=== PATIENT | male | born 1965 | race Caucasian/White ===

== ENCOUNTER 2021-12-13 13:54 | Emergency (ER) | payer BC, SELFPAY ==
[2021-12-13] VITALS (8 sets, daily range): BP systolic 130–139; BP diastolic 77–92; PULSE 74–99; RESP 15–25; TEMP 37.3; O2SAT 93–97; BMI 27.3
[2021-12-13 15:22] LABS: Add Manual Diff / Slide Review NO; Basophils Absolute Auto 100 /uL (0-100); Basophils Percent Auto 0.6 % (0-2); Eosinophils Absolute Auto 100 /uL (0-450); Eosinophils Percent Auto 0.9 % (2-4); Hematocrit 47.9 % (41-53); Hemoglobin 16.1 g/dL (13.5-17.5); Lymphocytes Absolute Auto 900 /uL (1100-4500); Lymphocytes Percent Auto 7.3 % (25-40); Mean Corpuscular HGB Conc 33.7 % (30-36); Mean Corpuscular Hemoglobin 30.2 PG (26-34); Mean Corpuscular Volume 89.6 fL (80-100); Monocytes Absolute Auto 900 /uL (0-900); Monocytes Percent Auto 7.3 % (3-14); Neutrophils Absolute Auto 10600 /uL (1500-7000); Neutrophils Percent Auto 83.9 % (50-75); Platelet Count 324 X10^3/uL (150-400); Red Blood Cell Count 5.35 X10^6/uL (4.5-5.9); White Blood Cell Count 12.6 X10^3/uL (4.5-11.0)
[2021-12-13 15:23] LABS: Alanine Aminotransferase 37 IU/L (<50); Albumin 4.5 g/dL (3.5-5.0); Albumin Globulin Ratio 1.3 (1.0-2.8); Alkaline Phosphatase 63 U/L (38-126); Aspartate Aminotransferase 37 IU/L (17-59); BUN Creatinine Ratio 13.7 (6-22); Blood Urea Nitrogen 13 mg/dL (9-20); Calcium 9.5 mg/dL (8.4-10.2); Carbon Dioxide 27 mmol/L (22-32); Chloride 105 mmol/L (98-107); Estimated Glomerular Filt Rate > 60.0 mL/min (>60); Globulin 3.6 g/dL (1.7-4.1); Glucose 94 mg/dL (70-100); HEMOLYSIS < 15 (0-50); Lipase 105 U/L (23-300); Potassium 4.2 mmol/L (3.4-5.1); Sodium 138 mmol/L (137-145); Total Protein 8.1 g/dL (6.3-8.2)
--- NOTE | 2021-12-13 15:46 | ED_ITS ---
HPI - Abdominal Pain <ARNALDO Doty - Last Filed: 12/13/21 17:30> General Chief Complaint: Abdominal Pain Stated Complaint: Severe abd pain x 2 weeks Time Seen by Provider: 12/13/21 15:46 Source: patient Mode of arrival: Ambulatory History of Present Illness HPI narrative: 56-year-old male without any significant medical history presents to the emergency department complaining of left lower quadrant pain for the last 2 weeks but it became worse last night. Patient states that 5 days ago he had a sharp episode of the same pain which he describes as 10/10 pain. Patient states that he has a low-grade fever today, 99.8, he endorses that his primary care provider Carly Thayer from [place] sent him to the emergency department today for evaluation of this. Patient denies any vomiting or stool changes but does endorse nausea. Patient denies having an appetite today but otherwise has been tolerating p.o.. Patient states that he has had a daily bowel movement in these have been normal for him. Patient denies any blood in his stool, denies any urinary retention, dysuria, urinary urgency, or flank pain. Patient denies any shortness of breath, chest pain, abdominal pain anywhere else, or pelvic pain. Patient has a history of HASEEB, hyperlipidemia, and polycythemia. Related Data Home Medications Medication Instructions Recorded Confirmed ACETAMINOPHEN 1,000 mg PO TIDP #30 cap 04/08/12 Previous Rx's Medication Instructions Recorded testosterone enanthate 200 mg/mL 0 IM QWEEK #10 ml 11/18/16 intramuscular oil sildenafil (pulm.hypertension) 20 0 PO HS #60 tab 01/23/17 mg tablet ciprofloxacin HCl 500 mg tablet 500 mg PO BID 10 Days #20 tab 12/13/21 (Cipro) metronidazole 500 mg tablet 500 mg PO TID 10 Days #30 tab 12/13/21 Allergies Allergy/AdvReac Type Severity Reaction Status Date / Time No Known Drug Allergies Allergy Verified 12/13/21 14:35 Review of Systems <ARNALDO Doty - Last Filed: 12/13/21 17:30> Review of Systems Narrative: General: Endorses low-grade fever today, denies chills, malaise, sweats, fatigue Head/Neck: denies headache, neck pain, dizziness Eyes: denies visual changes, eye pain Cardio: denies chest pain, palpitations, edema Respiratory: denies dyspnea, cough, orthopnea GI: Endorses right lower quadrant pain now with nausea , denies vomiting, or diarrhea : denies dysuria, hematuria, urinary retention, frequency or incontinence MSK: denies joint pain, muscle weakness Skin: denies rash, itching, skin lesions or other Neuro: denies numbness, tingling Patient History <ARNALDO Doty - Last Filed: 12/13/21 17:30> Medical History Excessive daytime sleepiness (~2011) Insomnia, persistent (~2011) Obstructive sleep apnea of adult (~2011) Snoring (~1992) Family History Father Heart disease Hypertension Social History Smoking Status: Unknown if ever smoked Smoking Status: Unknown if ever smoked alcohol intake frequency: holidays/special occasions only Substance Use Type: does not use Exam <ARNALDO Doty - Last Filed: 12/13/21 17:30> Narrative Exam Narrative: Independently reviewed vitals signs and nursing notes. General: Cooperative, comfortable, in no acute distress, well developed and well groomed Head/Neck: Normal visual inspection and supple, atraumatic, no JVD or lymphadenopathy. Normal facial exam Eyes: Pupils equal round and reactive, EOMI, conjunctiva normal, no scleral icterus or injections Nose: External nose normal, nares patent, no rhinorrhea, without purulent drainage Mouth/Throat: uvula midline, moist mucus membranes Cardio: Regular rate and rhythm, no peripheral edema, warm extremities Respiratory: Normal respiratory effort, able to speak in complete sentences without audible wheezing, stridor, or rales. No retractions. GI: Abdomen soft, tender to palpation over the left lower lateral quadrant, no tenderness to other quadrants, nondistended, no masses or exquisite tenderness with exam, no flank tenderness MSK: Moves all extremities, neurovascularly intact Skin: Normal capillary refill, no rash Neuro: Normal speech and cognition, normal gait, A&O x3, tone normal, moves all extremities Psych: Mental status is grossly normal, speech is clear, congruent mood, normal affect Initial Vital Signs Initial Vital Signs: Vital Signs Temperature 99.1 F 12/13/21 14:36 Pulse Rate 99 H 12/13/21 14:36 Respiratory Rate 15 12/13/21 14:36 Blood Pressure 136/84 12/13/21 14:36 Pulse Oximetry 96 12/13/21 14:36 <Ana Perea DO - Last Filed: 12/18/21 07:36> Initial Vital Signs Initial Vital Signs: Vital Signs Temperature 99.1 F 12/13/21 14:36 Pulse Rate 99 H 12/13/21 14:36 Respiratory Rate 15 12/13/21 14:36 Blood Pressure 136/84 12/13/21 14:36 Pulse Oximetry 96 12/13/21 14:36 Course <ARNALDO Doty - Last Filed: 12/13/21 17:30> Orders Ordered: Discontinued Medications Ciprofloxacin (Ciprofloxacin 250 Mg Tablet) 500 mg PO NOW ONE Stop: 12/13/21 17:08 Last Admin: 12/13/21 17:12 Dose: 500 mg Documented by: RAFIQ Sodium Chloride (Normal Saline 0.9%) 1,000 mls @ 1,000 mls/hr IV BOLUS ONE Stop: 12/13/21 16:52 Last Infusion: 12/13/21 17:08 Dose: 0 mls/hr Documented by: Admin: 12/13/21 16:08 Dose: 1,000 mls/hr Documented by: RAFIQ Ketorolac Tromethamine (Ketorolac 30 Mg/Ml Vial) 15 mg IV NOW ONE Stop: 12/13/21 15:54 Last Admin: 12/13/21 16:07 Dose: 15 mg Documented by: RAFIQ Metronidazole (Metronidazole 500 Mg Tablet) 500 mg PO NOW ONE Stop: 12/13/21 17:08 Last Admin: 12/13/21 17:12 Dose: 500 mg Documented by: RAFIQ Ondansetron HCl (Ondansetron 4 Mg/2 Ml Inj) 4 mg IV NOW ONE Stop: 12/13/21 15:55 Last Admin: 12/13/21 16:07 Dose: 4 mg Documented by: RAFIQ Vital Signs Vital signs: Vital Signs - 8 hr 12/13/21 14:36 12/13/21 14:55 12/13/21 14:56 Temperature 99.1 F Pulse Rate 99 H 87 86 Respiratory Rate 15 25 H 24 Blood Pressure 136/84 134/92 H Pulse Oximetry 96 97 96 12/13/21 15:00 12/13/21 15:30 12/13/21 16:07 Temperature Pulse Rate 86 84 88 Respiratory Rate 25 H 21 Blood Pressure 130/87 133/77 Pulse Oximetry 95 93 95 12/13/21 16:08 12/13/21 16:30 Temperature Pulse Rate 85 74 Respiratory Rate 21 15 Blood Pressure 139/87 130/80 Pulse Oximetry 96 95 <Ana Perea, - Last Filed: 12/18/21 07:36> Orders Ordered: Discontinued Medications Ciprofloxacin (Ciprofloxacin 250 Mg Tablet) 500 mg PO NOW ONE Stop: 12/13/21 17:08 Last Admin: 12/13/21 17:12 Dose: 500 mg Documented by: RAFIQ Sodium Chloride (Normal Saline 0.9%) 1,000 mls @ 1,000 mls/hr IV BOLUS ONE Stop: 12/13/21 16:52 Last Infusion: 12/13/21 17:08 Dose: 0 mls/hr Documented by: Admin: 12/13/21 16:08 Dose: 1,000 mls/hr Documented by: RAFIQ Ketorolac Tromethamine (Ketorolac 30 Mg/Ml Vial) 15 mg IV NOW ONE Stop: 12/13/21 15:54 Last Admin: 12/13/21 16:07 Dose: 15 mg Documented by: RAFIQ Metronidazole (Metronidazole 500 Mg Tablet) 500 mg PO NOW ONE Stop: 12/13/21 17:08 Last Admin: 12/13/21 17:12 Dose: 500 mg Documented by: RAFIQ Ondansetron HCl (Ondansetron 4 Mg/2 Ml Inj) 4 mg IV NOW ONE Stop: 12/13/21 15:55 Last Admin: 12/13/21 16:07 Dose: 4 mg Documented by: RAFIQ Vital Signs Vital signs: Vital Signs - 8 hr 12/13/21 14:36 12/13/21 14:55 12/13/21 14:56 Temperature 99.1 F Pulse Rate 99 H 87 86 Respiratory Rate 15 25 H 24 Blood Pressure 136/84 134/92 H Pulse Oximetry 96 97 96 03/03/22 15:00 12/13/21 15:30 12/13/21 16:07 Temperature Pulse Rate 86 84 88 Respiratory Rate 25 H 21 Blood Pressure 130/87 133/77 Pulse Oximetry 95 93 95 12/13/21 16:08 12/13/21 16:30 Temperature Pulse Rate 85 74 Respiratory Rate 21 15 Blood Pressure 139/87 130/80 Pulse Oximetry 96 95 MDM - Abdominal Pain <ARANLDO Doty - Last Filed: 12/13/21 17:30> Lab Data Result diagrams: 12/13/21 15:00 12/13/21 15:00 Labs: Lab Results 12/13/21 12/13/21 12/13/21 Range/Units 15:00 15:00 15:00 WBC 12.6 H (4.5-11.0) X10^3/uL RBC 5.35 (4.5-5.9) X10^6/uL Hgb 16.1 (13.5-17.5) g/dL Hct 47.9 (41-53) % MCV 89.6 (80-100) fL MCH 30.2 (26-34) PG MCHC 33.7 (30-36) % RDW 14.0 (11.6-14.8) % Plt Count 324 (150-400) X10^3/uL Neut % (Auto) 83.9 H (50-75) % Lymph % (Auto) 7.3 L (25-40) % Lander % (Auto) 7.3 (3-14) % Eos % (Auto) 0.9 L (2-4) % Baso % (Auto) 0.6 (0-2) % Neut # (Auto) 00524 H (0898-2481) /uL Lymph # (Auto) 900 L (2540-2377) /uL Lander # (Auto) 900 (0-900) /uL Eos # (Auto) 100 (0-450) /uL Baso # (Auto) 100 (0-100) /uL Sodium 138 (137-145) mmol/L Potassium 4.2 (3.4-5.1) mmol/L Chloride 105 (98-107) mmol/L Carbon Dioxide 27 (22-32) mmol/L BUN 13 (9-20) mg/dL Creatinine 0.95 (0.66-1.25) mg/dL Estimated GFR > 60.0 (>60) mL/min BUN/Creatinine Ratio 13.7 (6-22) Glucose 94 (70-100) mg/dL Calcium 9.5 (8.4-10.2) mg/dL Total Bilirubin 1.0 1.0 (0.2-1.3) mg/dL Conjugated Bilirubin 0.0 (0.0-0.3) md/dL Unconjugated Bilirubin 0.8 (0.0-1.1) mg/dL AST 37 45 (17-59) IU/L ALT 37 37 (<50) IU/L Alkaline Phosphatase 63 63 (38-126) U/L Total Protein 8.1 8.0 (6.3-8.2) g/dL Albumin 4.5 4.5 (3.5-5.0) g/dL Globulin 3.6 3.5 (1.7-4.1) g/dL Albumin/Globulin Ratio 1.3 1.3 (1.0-2.8) Lipase 105 (23-300) U/L Procalcitonin (<0.5) ng/mL 12/13/21 Range/Units 15:00 WBC (4.5-11.0) X10^3/uL RBC (4.5-5.9) X10^6/uL Hgb (13.5-17.5) g/dL Hct (41-53) % MCV (80-100) fL MCH (26-34) PG MCHC (30-36) % RDW (11.6-14.8) % Plt Count (150-400) X10^3/uL Neut % (Auto) (50-75) % Lymph % (Auto) (25-40) % Lander % (Auto) (3-14) % Eos % (Auto) (2-4) % Baso % (Auto) (0-2) % Neut # (Auto) (8507-6606) /uL Lymph # (Auto) (7363-9976) /uL Lander # (Auto) (0-900) /uL Eos # (Auto) (0-450) /uL Baso # (Auto) (0-100) /uL Sodium (137-145) mmol/L Potassium (3.4-5.1) mmol/L Chloride (98-107) mmol/L Carbon Dioxide (22-32) mmol/L BUN (9-20) mg/dL Creatinine (0.66-1.25) mg/dL Estimated GFR (>60) mL/min BUN/Creatinine Ratio (6-22) Glucose (70-100) mg/dL Calcium (8.4-10.2) mg/dL Total Bilirubin (0.2-1.3) mg/dL Conjugated Bilirubin (0.0-0.3) md/dL Unconjugated Bilirubin (0.0-1.1) mg/dL AST (17-59) IU/L ALT (<50) IU/L Alkaline Phosphatase (38-126) U/L Total Protein (6.3-8.2) g/dL Albumin (3.5-5.0) g/dL Globulin (1.7-4.1) g/dL Albumin/Globulin Ratio (1.0-2.8) Lipase (23-300) U/L Procalcitonin 0.13 (<0.5) ng/mL Imaging Data CT scan - abdomen/pelvis: Radiologist's Impression: PROCEDURE:? CT ABDOMEN PELVIS W CON ? INDICATIONS:? LLQ pain c/f diverticulitis ? TECHNIQUE:? After the administration of oral and IV contrast, axial sections were acquired from the lung bases to the pubic symphysis.? Coronal and sagittal reformats were performed.? For radiation dose reduction, the following was used:? automated exposure control, adjustment of mA and/or kV according to patient size. ? COMPARISON:? None. ? FINDINGS:? Image quality:? Excellent.? ? Lung bases:? Bibasilar atelectasis.? ? Heart:? No significant findings. ? ? ABDOMEN: Liver:? Unremarkable.? ? Gallbladder:? Small layering gallstones/sludge.? No gallbladder wall thickening or pericholecystic fluid.? ? Biliary ducts:? Unremarkable.? ? Pancreas:? Unremarkable.? ? Spleen:? Unremarkable.? ? Adrenal Glands:? Unremarkable.? ? Kidneys and Ureters:? Unremarkable.? ? ? Stomach and Bowel:? No evidence of intestinal obstruction.? Prominent colonic diverticulosis, most prominent in the descending colon with wall thickening, compatible with acute diverticulitis. Normal appendix. Peritoneum:? No abnormal intraperitoneal fluid.? No free air.? ? Ventral Wall: ? Trace fat containing, periumbilical hernia.? Abdominal Nodes:? No retroperitoneal or mesenteric adenopathy by size criteria.? Vessels:? Aorta and inferior vena cava are normal in size.? ? PELVIS: Pelvic Organs:? Unremarkable.? ? Bladder:? Unremarkable.? ? Pelvic Nodes: No enlarged lymph nodes.? Miscellaneous: No inguinal hernias are seen. ? ? ? Bones:? Multifocal degenerative change. ? ? IMPRESSION:? ? 1. Acute diverticulitis involving the descending colon.? ? ? Dictated by: Anupam Urbina M.D. on 12/13/2021 at 16:58 ? ? Approved by: Anupam Urbina M.D. on 12/13/2021 at 17:01 ? MDM Narrative Medical decision making narrative: 56-year-old male presents to the emergency department with 2 week history of left lower quadrant abdominal pain which has been worsening since last night. Patient has tenderness over the left lateral lower quadrant to palpation, no abdominal distension or exquisite tenderness on exam. Lab work 12.6, predominantly neutrophils of 10,600, no gross electrolyte abnormalities, liver enzymes were not elevated, lipase of 105, procalcitonin of 0.13. Patient was given 1 L of normal saline for volume depletion also for IV contrast. CT abdomen pelvis shows acute diverticulitis of his descending colon. Patient was treated with ciprofloxacin and metronidazole, was given Zofran for nausea without emesis. Patient was instructed to have close follow-up with his primary care provider. He was given information about diverticulitis diet, encourage to have clear liquid diet for the next 2-3 days until he starts feeling better and gradually increase to a low-fiber diet. Differential diagnoses include bowel perforation,: Abscess, colitis, peritonitis. Patient is appropriate and amenable to discharge home. Vital signs are stable on repeat examination is unremarkable. Patient has been informed of results. Patient has been given strict return to ER precautions for any new or worsening symptoms. Patient understands to follow up closely with outpatient providers as instructed. Patient understands plan and agrees to discharge home. All questions and concerns answered at this time. <Ana Perea, DO - Last Filed: 12/18/21 07:36> Lab Data Labs: Lab Results 12/13/21 12/13/21 12/13/21 Range/Units 15:00 15:00 15:00 WBC 12.6 H (4.5-11.0) X10^3/uL RBC 5.35 (4.5-5.9) X10^6/uL Hgb 16.1 (13.5-17.5) g/dL Hct 47.9 (41-53) % MCV 89.6 (80-100) fL MCH 30.2 (26-34) PG MCHC 33.7 (30-36) % RDW 14.0 (11.6-14.8) % Plt Count 324 (150-400) X10^3/uL Neut % (Auto) 83.9 H (50-75) % Lymph % (Auto) 7.3 L (25-40) % Lander % (Auto) 7.3 (3-14) % Eos % (Auto) 0.9 L (2-4) % Baso % (Auto) 0.6 (0-2) % Neut # (Auto) 61335 H (7748-7329) /uL Lymph # (Auto) 900 L (2521-5503) /uL Lander # (Auto) 900 (0-900) /uL Eos # (Auto) 100 (0-450) /uL Baso # (Auto) 100 (0-100) /uL Sodium 138 (137-145) mmol/L Potassium 4.2 (3.4-5.1) mmol/L Chloride 105 (98-107) mmol/L Carbon Dioxide 27 (22-32) mmol/L BUN 13 (9-20) mg/dL Creatinine 0.95 (0.66-1.25) mg/dL Estimated GFR > 60.0 (>60) mL/min BUN/Creatinine Ratio 13.7 (6-22) Glucose 94 (70-100) mg/dL Calcium 9.5 (8.4-10.2) mg/dL Total Bilirubin 1.0 1.0 (0.2-1.3) mg/dL Conjugated Bilirubin 0.0 (0.0-0.3) md/dL Unconjugated Bilirubin 0.8 (0.0-1.1) mg/dL AST 37 45 (17-59) IU/L ALT 37 37 (<50) IU/L Alkaline Phosphatase 63 63 (38-126) U/L Total Protein 8.1 8.0 (6.3-8.2) g/dL Albumin 4.5 4.5 (3.5-5.0) g/dL Globulin 3.6 3.5 (1.7-4.1) g/dL Albumin/Globulin Ratio 1.3 1.3 (1.0-2.8) Lipase 105 (23-300) U/L Procalcitonin (<0.5) ng/mL 12/13/21 Range/Units 15:00 WBC (4.5-11.0) X10^3/uL RBC (4.5-5.9) X10^6/uL Hgb (13.5-17.5) g/dL Hct (41-53) % MCV (80-100) fL MCH (26-34) PG MCHC (30-36) % RDW (11.6-14.8) % Plt Count (150-400) X10^3/uL Neut % (Auto) (50-75) % Lymph % (Auto) (25-40) % Lander % (Auto) (3-14) % Eos % (Auto) (2-4) % Baso % (Auto) (0-2) % Neut # (Auto) (7751-0282) /uL Lymph # (Auto) (4231-4842) /uL Lander # (Auto) (0-900) /uL Eos # (Auto) (0-450) /uL Baso # (Auto) (0-100) /uL Sodium (137-145) mmol/L Potassium (3.4-5.1) mmol/L Chloride (98-107) mmol/L Carbon Dioxide (22-32) mmol/L BUN (9-20) mg/dL Creatinine (0.66-1.25) mg/dL Estimated GFR (>60) mL/min BUN/Creatinine Ratio (6-22) Glucose (70-100) mg/dL Calcium (8.4-10.2) mg/dL Total Bilirubin (0.2-1.3) mg/dL Conjugated Bilirubin (0.0-0.3) md/dL Unconjugated Bilirubin (0.0-1.1) mg/dL AST (17-59) IU/L ALT (<50) IU/L Alkaline Phosphatase (38-126) U/L Total Protein (6.3-8.2) g/dL Albumin (3.5-5.0) g/dL Globulin (1.7-4.1) g/dL Albumin/Globulin Ratio (1.0-2.8) Lipase (23-300) U/L Procalcitonin 0.13 (<0.5) ng/mL Discharge Plan Departure Patient Disposition: Home Clinical Impression: Diverticulitis Instructions: DI for Diverticulitis Activity Restrictions/Additional Instructions: *You have been diagnosed with diverticulitis of the descending colon. I have prescribed you to different antibiotics to take for this. Please follow-up with your primary care provider Carly within the next week for follow-up. Please try do a clear diet for the next 1-3 days depending on your symptoms. The antibiotic should help your pain improve, and then you could slowly progress your diet with low fiber foods. I have attached some information about them below. Please remember to not engage in any contact exercise or anything with jumping or impact. This medication is not compatible with alcohol as you already know, but this is not a problem for you. Thank you for trusting us with your care, have included some nausea medication for you if you have stat. If you develop a high fever, severe pain in this lower left quadrant where your pain is, or if the pain spreads to the rest of your abdomen and is worse, please return to the emergency department for another evaluation immediately. Diverticula are small, bulging pouches that can form in the lining of the digestive system. They're found most often in the lower part of the large intestine (colon). This condition is called diverticulosis. In some cases, one or more of the pouches become inflamed or infected. This is known as diverticulitis. Mild cases of diverticulitis are usually treated with antibiotics and a low- fiber diet, or treatment may start with a period of rest where you eat nothing by mouth, then start with clear liquids and then move to a low-fiber diet until your condition improves. More-severe cases typically require hospitalization. Purpose Nutrition therapy for diverticulitis is a temporary measure to give your digest chu system a chance to rest. Eat small amounts until bleeding and diarrhea subside. Diet details Your diet starts with only clear liquids for a few days. Examples of items allowed on a clear liquid diet include: * Broth * Fruit juices without pulp, such as apple juice * Ice chips * Ice pops without bits of fruit or fruit pulp * Gelatin * Water * Tea or coffee without cream As you start feeling better, your doctor will recommend that you slowly add low- fiber foods. Examples of low-fiber foods include: * Canned or cooked fruits without skin or seeds * Canned or cooked vegetables such as green beans, carrots and potatoes (without the skin) * Eggs, fish and poultry * Refined white bread * Fruit and vegetable juice with no pulp * Low-fiber cereals * Milk, yogurt and cheese * White rice, pasta and noodles Results You should feel better within two or three days of starting the diet and antibiotics. If you haven't started feeling better by then, call your doctor. Also contact your doctor if: * You develop a fever * Your abdominal pain is worsening * You're unable to keep clear liquids down These may indicate a complication that requires hospitalization. Risks Nutrition therapy for diverticulitis has few risks. However, continuing a clear liquid diet for more than a few days can lead to weakness and other complications, since it doesn't provide enough of the nutrients your body needs. For this reason, your doctor will want you to transition back to a normal diet that includes foods with fiber as soon as you can tolerate it. *What to do: *Please continue to take your regular medications as directed. [x ] New medication prescriptions sent to your pharmacy: [ [facility]] [ ] New medication written as a paper prescription [ ] No new medications given *Please follow up with your primary care provider in 2-3 days, call for an appointment. Let them know you were seen in the Emergency Department and that we ask that you be seen in follow up. We will electronically transmit a record of today's note if your PCP is in our system *If you do not have a primary care provider please contact the [facility] Resource line at [phone]. They will ask some questions about your medical history and help get you set up with a doctor in the community. *Return to Emergency Department if you should have any new, worsening or concerning symptoms, such as [fever greater than 101F, chills, worsening pain, persistent vomiting or other bothersome symptoms] Prescriptions: New ciprofloxacin HCl [Cipro] 500 mg tablet 500 mg PO BID 10 Days Qty: 20 0RF metronidazole 500 mg tablet 500 mg PO TID 10 Days Qty: 30 0RF No Action ACETAMINOPHEN 1,000 mg PO TIDP Qty: 30 0RF testosterone enanthate 200 MG/1 ML oil 0 IM QWEEK Qty: 10 1RF sildenafil (pulm.hypertension) 20 MG tablet 0 PO HS Qty: 60 0RF Referrals: Carly Thayer ARNP [Primary Care Provider] - <Ana Perea DO - Last Filed: 12/18/21 07:36> Cosign ED Attending Coscharmaineature Attestation: I was immediately available in the department for consultation. Documentation has been reviewed. I agree with assessment and plan.
--- NOTE | 2021-12-13 15:47 | DI.CT.S_ITS ---
PROCEDURE: CT ABDOMEN PELVIS W CON INDICATIONS: LLQ pain c/f diverticulitis TECHNIQUE: After the administration of oral and IV contrast, axial sections were acquired from the lung bases to the pubic symphysis. Coronal and sagittal reformats were performed. For radiation dose reduction, the following was used: automated exposure control, adjustment of mA and/or kV according to patient size. COMPARISON: None. FINDINGS: Image quality: Excellent. Lung bases: Bibasilar atelectasis. Heart: No significant findings. ABDOMEN: Liver: Unremarkable. Gallbladder: Small layering gallstones/sludge. No gallbladder wall thickening or pericholecystic fluid. Biliary ducts: Unremarkable. Pancreas: Unremarkable. Spleen: Unremarkable. Adrenal Glands: Unremarkable. Kidneys and Ureters: Unremarkable. Stomach and Bowel: No evidence of intestinal obstruction. Prominent colonic diverticulosis, most prominent in the descending colon with wall thickening, compatible with acute diverticulitis. Normal appendix. Peritoneum: No abnormal intraperitoneal fluid. No free air. Ventral Wall: Trace fat containing, periumbilical hernia. Abdominal Nodes: No retroperitoneal or mesenteric adenopathy by size criteria. Vessels: Aorta and inferior vena cava are normal in size. PELVIS: Pelvic Organs: Unremarkable. Bladder: Unremarkable. Pelvic Nodes: No enlarged lymph nodes. Miscellaneous: No inguinal hernias are seen. Bones: Multifocal degenerative change. IMPRESSION: 1. Acute diverticulitis involving the descending colon. Dictated by: Anupam Urbina M.D. on 12/13/2021 at 16:58 Approved by: Anupam Urbina M.D. on 12/13/2021 at 17:01
[2021-12-13] MEDS: KETOROLAC 30 MG/ML VIAL 15 MG IV (16:07)
[2021-12-13] MEDS: ONDANSETRON 4 MG/2 ML INJ IV (16:07)
[2021-12-13] MEDS: SODIUM CHLORIDE 0.9% 1,000 ML 1000 ML IV (16:08)
[2021-12-13 16:20] LABS: Alanine Aminotransferase 37 IU/L (<50); Albumin 4.5 g/dL (3.5-5.0); Albumin Globulin Ratio 1.3 (1.0-2.8); Alkaline Phosphatase 63 U/L (38-126); Aspartate Aminotransferase 45 IU/L (17-59); Bilirubin Unconjugated 0.8 mg/dL (0.0-1.1); Globulin 3.5 g/dL (1.7-4.1); HEMOLYSIS < 15 (0-50)
[2021-12-13 16:36] LABS: Procalcitonin 0.13 ng/mL (<0.5)
[2021-12-13] MEDS: CIPROFLOXACIN 250 MG TABLET 500 MG PO (17:12)
[2021-12-13] MEDS: metroNIDAZOLE 500 MG TABLET PO (17:12)
== END 2021-12-13 17:52 | disposition home or self-care (01) ==
PROVIDERS: Emergency Medicine; Emergency Provider Nurse Practitioner Critical Care Medicine; Family Provider Family Medicine; PCP Nurse Practitioner Family
DX: K57.32 Diverticulitis of large intestine without perforation or abscess without bleeding (principal)
CPT/HCPCS: 36415; 74177; 80053; 80076; 83690; 84145; 85025; 96361; 96374; 96375; 99284; J1885; J2405; Q9967